=== PATIENT | female | born 1965 | race Two or more races ===

== ENCOUNTER 2016-09-17 19:59 | Emergency (ER) | payer OTHER ==
[~2016-09-17] VITALS: Ht 154.9 cm; Wt 81.6 kg
[2016-09-17 20:07] VITALS: BP 151/73
== END 2016-09-17 22:23 | disposition left against medical advice (07) ==
LOC: ER 20:03
DX: Z53.21 Procedure and treatment not carried out due to patient leaving prior to being seen by health care provider (principal)
CPT/HCPCS: A4606; Z7610